=== PATIENT | male | born 1965 | race Caucasian/White ===

== ENCOUNTER 2021-06-27 04:32 | Day surgery (SDC) | payer BC, OTHER ==
[2021-06-25 15:13] VITALS: BMI 34.4
[2021-06-27] MEDS ORDERED: KETAMINE HCL 200 MG/20 ML VIAL ONE (07:06)
[2021-06-27 09:11] VITALS: TEMP 98
[2021-06-27] MEDS ORDERED: ACETAMINOPHEN 500 MG TABLET (FP) PO ONE ×2 (09:29)
[2021-06-27 10:22] VITALS: BP 145/83; PULSE 101
== END 2021-06-27 10:27 | disposition home or self-care (01) ==
LOC: JASU-ENDO 04:32
PROVIDERS: ATTEND Internal Medicine Gastroenterology
PROC: 0DBK8ZX Excision of Ascending Colon, Via Natural or Artificial Opening Endoscopic, Diagnostic (ICD-10-PCS; principal; 2021-06-27 08:00)
DX: Z12.11 Encounter for screening for malignant neoplasm of colon (principal); D12.2 Benign neoplasm of ascending colon; K64.8 Other hemorrhoids; I10 Essential (primary) hypertension; E66.9 Obesity, unspecified; Z83.71 Family history of colonic polyps
CPT/HCPCS: 88305-TC

== ENCOUNTER 2022-03-28 21:09 | Emergency (ER) | payer OTHER ==
[2022-03-28 21:21] VITALS: BP 176/89; PULSE 110; TEMP 98.7; BMI 32.1
== END 2022-03-29 00:42 | disposition home or self-care (01) ==
LOC: JER 21:09
DX: U07.1 COVID-19 (principal)
CPT/HCPCS: 71046-TC-FY; 99283-25

== ENCOUNTER 2025-03-21 06:13 | Day surgery (SDC) | payer OTHER ==
[2025-03-19 10:12] VITALS: BMI 38.2
[2025-03-21] MEDS ORDERED: ONDANSETRON 4 MG/2 ML VIAL IVPUSH PRN (07:34)
[2025-03-21] MEDS ORDERED: oxyCODONE HCL 5 MG TABLET PO PRN ×3 (07:34→08:14)
[2025-03-21] MEDS ORDERED: MIDAZOLAM HCL 2 MG/2 ML SINGLE DOSE VIAL ONE (07:43)
[2025-03-21] MEDS ORDERED: LACTATED RINGERS SOLUTION 1,000 ML IV SCH (07:45)
[2025-03-21] MEDS ORDERED: LIDOCAINE HCL/PF 2% SDV 5ML VIAL ONE (07:46)
[2025-03-21] MEDS ORDERED: PROPOFOL 20 ML ONE (07:47)
[2025-03-21] MEDS ORDERED: ceFAZolin SODIUM 1 GM VIAL ONE ×2 (07:50)
[2025-03-21] MEDS ORDERED: ELECTROLYTE-148 SOLN 1,000 ML IV SCH (08:15)
[2025-03-21 09:05] VITALS: RESP 18
[2025-03-21 13:03] VITALS: BP 146/85; PULSE 87; TEMP 97.7
== END 2025-03-21 12:00 | disposition home or self-care (01) ==
LOC: JASU-SURG 06:13
PROVIDERS: ATTEND Urology
PROC: 3E0K8GC Introduction of Other Therapeutic Substance into Genitourinary Tract, Via Natural or Artificial Opening Endoscopic (ICD-10-PCS; principal; 2025-03-21 07:30)
DX: R32 Unspecified urinary incontinence (principal)
CPT/HCPCS: 94760

== ENCOUNTER 2025-07-04 05:37 | Day surgery (SDC) | payer OTHER ==
[2025-07-02 10:48] VITALS: BMI 37.5
[2025-07-04] MEDS ORDERED: LIDOCAINE HCL/PF 2% SDV 5ML VIAL ONE (07:56)
[2025-07-04] MEDS ORDERED: MIDAZOLAM HCL 2 MG/2 ML SINGLE DOSE VIAL ONE (07:56)
[2025-07-04] MEDS ORDERED: PROPOFOL 20 ML ONE (07:56)
[2025-07-04] MEDS ORDERED: DEXAMETHASONE SOD PHOSPHATE 4 MG/1 ML VIAL ONE (08:21)
[2025-07-04] MEDS ORDERED: ONDANSETRON 4 MG/2 ML VIAL ONE (08:45)
[2025-07-04] MEDS ORDERED: KETOROLAC TROMETHAMINE 30 MG/1 ML VIAL ONE (08:46)
[2025-07-04] MEDS ORDERED: ONDANSETRON 4 MG/2 ML VIAL IVPUSH PRN (09:11)
[2025-07-04] MEDS ORDERED: LACTATED RINGERS SOLUTION 1,000 ML IV SCH (09:15)
[2025-07-04] MEDS: DEXTROSE 5%-0.45% SALINE 1,000 ML IV SCH (10:43)
[2025-07-04] MEDS: CEPHALEXIN MONOHYDRATE 500 MG CAPSULE (UD) PO SCH (12:59)
[2025-07-04 14:21] VITALS: RESP 18
[2025-07-04] MEDS: SOLIFENACIN SUCCINATE 5 MG TAB PO SCH (21:38)
[2025-07-04] MEDS: MECLIZINE HCL 25 MG TABLET (FP) PO SCH (21:38)
[2025-07-04] MEDS: SENNOSIDES 8.6MG TABLET (FP) PO SCH (21:38)
[2025-07-04] MEDS: FAMOTIDINE 20 MG TABLET PO SCH (21:38)
[2025-07-04] MEDS ORDERED: SENNOSIDES 8.6MG TABLET (FP) PO SCH (22:00)
[2025-07-04] MEDS ORDERED: DESMOPRESSIN ACETATE PO SCH (22:00)
[2025-07-04] MEDS ORDERED: MECLIZINE HCL 25 MG PO SCH (22:00)
[2025-07-04] MEDS: MELATONIN 5 MG TABLETS PO ONE (23:28)
[2025-07-05] MEDS: TAMSULOSIN HCL 0.4 MG CAP PO SCH (07:57)
[2025-07-05] MEDS ORDERED: ESCITALOPRAM OXALATE 10 MG TABLET ONE (09:48)
[2025-07-05] MEDS: LOSARTAN POTASSIUM 25 MG TABLET PO SCH (09:59)
[2025-07-05] MEDS: amLODIPine BESYLATE 10 MG TABLET (FP) PO SCH (09:59)
[2025-07-05] MEDS: ESCITALOPRAM OXALATE 20 MG TABLET PO SCH (09:59)
[2025-07-05] MEDS: CHOLECALCIFEROL (VIT D3) 5000 UNITS (125 MCG) CAP PO SCH (09:59)
[2025-07-05] MEDS ORDERED: amLODIPine BESYLATE 10 MG TABLET (FP) PO SCH (10:00)
[2025-07-05] MEDS ORDERED: TAMSULOSIN HCL 0.4 MG CAP PO SCH (10:00)
[2025-07-05 14:28] VITALS: BP 92/44; PULSE 84; TEMP 97.3
[2025-07-05] MEDS ORDERED: ATORVASTATIN CA 10 MG TABLET (FP) PO SCH (22:00)
== END 2025-07-05 16:44 | disposition home or self-care (01) ==
LOC: JASU-SURG 05:37 → SUATTDRO 05:37 → JASUSAT 05:37 → J6S 11:43 → JASUSAT 07-05 16:44
PROVIDERS: ATTEND Internal Medicine
PROC: 0VT08ZZ Resection of Prostate, Via Natural or Artificial Opening Endoscopic (ICD-10-PCS; principal; 2025-07-04 07:30)
DX: N40.1 Benign prostatic hyperplasia with lower urinary tract symptoms (principal); N39.498 Other specified urinary incontinence
CPT/HCPCS: 94760